=== PATIENT | female | born 1935 | race Caucasian/White ===

== ENCOUNTER → 2021-01-18 | Outpatient (CLI) | payer MEDICARE ==
[~2021-01-18] MED LIST: NORCO 5-325 TA1 EACH PO
== END ==
LOC: OPSV 11:00
DX: S22.000A Wedge compression fracture of unspecified thoracic vertebra, initial encounter for closed fracture (principal); M81.0 Age-related osteoporosis without current pathological fracture
CPT/HCPCS: 96365; J3489

== ENCOUNTER → 2021-06-29 | Outpatient (CLI) | payer MEDICARE | LOC: KOH-I 15:37 | DX: Z47.33 Aftercare following explantation of knee joint prosthesis (principal) | CPT/HCPCS: 73564 ==

== ENCOUNTER 2022-01-11 21:17 | Observation (INO) | payer MEDICARE ==
[~2022-01-11] VITALS: Ht 154.9 cm; Wt 74.8 kg
[~2022-01-11 21:17] MED LIST changes: +ALPRAZOLAM0.5 MG PO; +ASPIRIN EC81 MG PO; +ATORVASTATIN CA40 MG PO; +DILTIAZEM HCL120 MG PO; +DOCUSATE SODIU100 MG PO; +ELIQUIS 2.5 MG2.5 MG PO; +ELIQUIS2.5 MG PO; +FARXIGA10 MG PO; +FERROUS GLUCON240 MG PO; +LEVOCETIRIZINE D5 MG PO; +LOSARTAN POTASS50 MG PO; +MONTELUKAST SOD10 MG PO; +PIOGLITAZONE HC30 MG PO; +VITAMIN D21250 MCG PO; +WELLBUTRIN XL150 MG PO
[2022-01-11 21:49] LABS: HEMOGLOBIN 12.6 gm/dl (12.3-15.3); RED BLOOD COUNT 5.18 M/UL (4.00-5.10); WHITE BLOOD COUNT 6.9 K/UL (4.5-11.0)
[2022-01-11 22:14] LABS: BUN/CREATININE RATIO 26 (0-10)
[2022-01-12] MEDS ORDERED: ESCITALOPRAM OXA5 MG PO (00:38)
[2022-01-12] MEDS ORDERED: BENZONATATE200 MG PO (00:39)
[2022-01-12] MEDS ORDERED: ZOFRAN 4 MG TAB4 MG PO (00:40)
[2022-01-12] MEDS ORDERED: CALTRATE 600 +1 EACH PO (00:41)
[2022-01-12] MEDS ORDERED: MELATONIN3 MG PO (00:42)
[2022-01-12] MEDS ORDERED: GLIPIZIDE ER2.5 MG PO (00:45)
[2022-01-12] MEDS ORDERED: COZAAR 50MG TAB50 MG PO (07:35)
[2022-01-12] MEDS ORDERED: DILTIAZEM ER120 M1 PO (07:39)
[2022-01-12] MEDS ORDERED: DIGOXIN125 MCG PO (17:09)
[2022-01-12] MEDS ORDERED: JANUVIA100 MG PO (17:10)
[2022-01-12] MEDS ORDERED: GLIPIZIDE ER10 MG PO (17:12)
== END 2022-01-13 10:52 | disposition home or self-care (01) ==
LOC: ER1 21:17 → M/S 23:02 → CDU 23:02 → M/S 23:40
PROVIDERS: Physician Assistant; ADMIT Internal Medicine
DX: E11.649 Type 2 diabetes mellitus with hypoglycemia without coma (principal); T50.905A Adverse effect of unspecified drugs, medicaments and biological substances, initial encounter; N17.9 Acute kidney failure, unspecified; E11.22 Type 2 diabetes mellitus with diabetic chronic kidney disease; I12.9 Hypertensive chronic kidney disease with stage 1 through stage 4 chronic kidney disease, or unspecified chronic kidney disease; N18.30 Chronic kidney disease, stage 3 unspecified; I25.10 Atherosclerotic heart disease of native coronary artery without angina pectoris; F17.200 Nicotine dependence, unspecified, uncomplicated; I48.91 Unspecified atrial fibrillation; R11.2 Nausea with vomiting, unspecified; E86.0 Dehydration; Z95.1 Presence of aortocoronary bypass graft; Z20.822 Contact with and (suspected) exposure to COVID-19
CPT/HCPCS: 36415; 71045; 80048; 80053; 80162; 82962; 85025; 93005; 96374; 99284; G0378; U0002